=== PATIENT | male | born 1990 | race Caucasian/White ===

== ENCOUNTER 2017-03-22 21:03 | Emergency (ER) | payer OTHER ==
[2017-03-23 00:30] VITALS: BP 135/78
== END 2017-03-23 00:30 | disposition home or self-care (01) ==
LOC: ED 21:03
DX: S62.525A Nondisplaced fracture of distal phalanx of left thumb, initial encounter for closed fracture (principal); S61.012A Laceration without foreign body of left thumb without damage to nail, initial encounter; X58.XXXA Exposure to other specified factors, initial encounter; Y93.89 Activity, other specified; Y99.8 Other external cause status; Y92.89 Other specified places as the place of occurrence of the external cause
CPT/HCPCS: 90715; A4570; J2001; J3490; Q0092

== ENCOUNTER 2020-07-24 19:31 | Emergency (ER) | payer OTHER ==
[~2020-07-24] VITALS: Ht 170.2 cm; Wt 88.0 kg
[2020-07-24 19:38] VITALS: Ht 170.2 cm; Wt 88.0 kg
[2020-07-24 21:52] VITALS: BP 124/83
== END 2020-07-24 21:52 | disposition home or self-care (01) ==
LOC: ED 19:31
DX: T78.40XA Allergy, unspecified, initial encounter (principal); W57.XXXA Bitten or stung by nonvenomous insect and other nonvenomous arthropods, initial encounter
CPT/HCPCS: J7512; Q0163